=== PATIENT | male | born 1970 | race Caucasian/White ===

== ENCOUNTER → 2017-02-12 | Outpatient (CLI) | payer MEDICAID, OTHER ==
[2017-02-12 18:24] LABS: BASOPHILS # (AUTO) 0.1 10^3/uL (0.0-0.1); BASOPHILS % (AUTO) 0.6 %; EOSINOPHILS # (AUTO) 0.4 10^3/uL (0.0-0.7); EOSINOPHILS % (AUTO) 4.1 %; HGB - HEMOGLOBIN 16.3 g/dL (14.0-18.0); LYMPHOCYTES # (AUTO) 2.4 10^3/uL (1.5-3.5); MEAN CORPUSCULAR HEMOGLOBIN 30.7 pg (27.0-31.0); MEAN CORPUSCULAR HGB CONC 33.4 g/dL (32.0-36.0); MEAN PLATELET VOLUME 9.2 fL (7.4-11.4); MONOCYTES # (AUTO) 0.7 10^3/uL (0.0-1.0); MONOCYTES % (AUTO) 6.2 %; NEUTROPHILS # (AUTO) 7.2 10^3/uL (1.5-6.6); NEUTROPHILS % (AUTO) 67.1 %; NUCLEATED RED BLOOD CELLS AUTO 0.1 /100WBC; RED BLOOD COUNT 5.32 10^6/uL (4.70-6.10); RED CELL DISTRIBUTION WIDTH 13.2 % (12.0-15.0); UNCORRECTED WHITE BLOOD COUNT 10.8 x10^3/uL; WHITE BLOOD COUNT 10.8 x10^3/uL (4.8-10.8)
[2017-02-12 19:26] LABS: ALBUMIN/GLOBULIN RATIO 1.5 (1.0-2.2); BILIRUBIN,TOTAL 0.5 mg/dL (0.2-1.0); BUN - BLOOD UREA NITROGEN 17 mg/dL (6-20); CALCIUM 9.3 mg/dL (8.5-10.3); CARBON DIOXIDE - CO2 27 mmol/L (21-32); CHLORIDE 104 mmol/L (101-111); CHOL/HDL RATIO 4.7 (<5.0); CHOLESTEROL 177 mg/dL; CREATININE 0.8 mg/dL (0.6-1.2); GFR - MDRD 104 (>89); GLUCOSE 168 mg/dL (70-100); HDL CHOLESTEROL 38 mg/dL; LDL/HDL RATIO 2.5 (<3.6); POTASSIUM 4.6 mmol/L (3.5-5.0); SODIUM 138 mmol/L (135-145); TOTAL PROTEIN 7.2 g/dL (6.7-8.2); TRIGLYCERIDES 220 mg/dL; VLDL CHOLESTEROL 44 mg/dL
[2017-02-12 20:19] LABS: HEMOGLOBIN A1C 1.19 g/dL
== END ==
LOC: LAB.S 08:00
PROVIDERS: ATTEND Nurse Practitioner Family
DX: E11.9 Type 2 diabetes mellitus without complications (principal); E78.5 Hyperlipidemia, unspecified
CPT/HCPCS: 36415; 80053; 80061; 82043; 82570; 83036; 84443; 85025

== ENCOUNTER 2017-02-23 17:18 | Outpatient (CLI) | payer MEDICAID ==
--- NOTE | 2017-02-24 00:42 | XRAY Report ---
EXAM: RIGHT FOOT RADIOGRAPHY EXAM DATE: 02/23/2017 05:31 PM. CLINICAL HISTORY: PAIN AND EDEMA. Right foot pain and swelling for 3 days. Pain across metatarsals. COMPARISON: None. TECHNIQUE: 3 views. FINDINGS: Bones: Normal. No fractures or bone lesions. Joints: Minimal right first metatarsal phalangeal osteoarthritis with minimal osteophytes. No subluxa tion. Small plantar calcaneal bone spur. Soft Tissues: Normal. No soft tissue swelling. IMPRESSION: No acute findings. Minimal right first metatarsal phalangeal osteoarthritis. [facility] Referring Provider Line: [phone] SITE ID: [id number]
== END 2017-02-23 17:19 | disposition home or self-care (01) ==
LOC: DI 17:18
PROVIDERS: ATTEND Podiatrist
DX: M19.071 Primary osteoarthritis, right ankle and foot (principal)

== ENCOUNTER 2017-07-30 08:42 | Outpatient (CLI) | payer OTHER ==
[2017-07-30 11:13] LABS: HB2 TOTAL 17.5 g/dL; HEMOGLOBIN A1C 1.3 g/dL; HEMOGLOBIN A1C % 8.9 % (4.6-6.2)
== END 2017-07-30 08:43 | disposition home or self-care (01) ==
LOC: LAB.S 08:42
PROVIDERS: ATTEND Nurse Practitioner Family
DX: E11.9 Type 2 diabetes mellitus without complications (principal)
CPT/HCPCS: 36415; 83036

== ENCOUNTER 2017-11-01 14:15 | Outpatient (CLI) | payer OTHER ==
[2017-11-02 10:37] LABS: BILIRUBIN,URINE NEGATIVE (NEGATIVE); GLUCOSE, URINE (UA) NEGATIVE (NEGATIVE); KETONES,URINE (UA) NEGATIVE (NEGATIVE); LEUKOCYTE ESTERASE, URINE NEGATIVE (NEGATIVE); NITRITE,URINE NEGATIVE (NEGATIVE); OCCULT BLOOD,URINE NEGATIVE (NEGATIVE); PROTEIN,URINE NEGATIVE (NEGATIVE); UROBILINOGEN,URINE 0.2 (NORMAL) E.U./dL (NORMAL)
[2017-11-02 10:41] LABS: CLARITY,URINE CLOUDY (CLEAR)
[2017-11-02 11:05] LABS: AMORPHOUS SEDIMENT,UR Moderate /LPF; BACTERIA,URINE Many /HPF (None Seen); RBC,URINE None Seen /HPF (0-5); SQUAMOUS EPITHELIAL CELL,UR FEW Squamous (<= Few)
== END 2017-11-01 14:16 | disposition home or self-care (01) ==
LOC: LAB.R 14:15
PROVIDERS: ATTEND Nurse Practitioner Family
DX: R36.1 Hematospermia (principal)
CPT/HCPCS: 81001; 87086

== ENCOUNTER 2017-11-12 11:24 | Outpatient (CLI) | payer OTHER ==
[2017-11-12 19:25] LABS: HEMOGLOBIN A1C 0.99 g/dL; HEMOGLOBIN A1C % 7.5 % (4.6-6.2)
== END 2017-11-12 11:25 | disposition home or self-care (01) ==
LOC: LAB.S 11:24
PROVIDERS: ATTEND Nurse Practitioner Family
DX: E11.9 Type 2 diabetes mellitus without complications (principal); R36.1 Hematospermia
CPT/HCPCS: 36415; 83036; 84153

== ENCOUNTER 2018-03-08 09:17 | Outpatient (CLI) | payer OTHER ==
[2018-03-08 17:20] LABS: BASOPHILS # (AUTO) 0.1 10^3/uL (0.0-0.1); BASOPHILS % (AUTO) 0.8 %; EOSINOPHILS # (AUTO) 0.2 10^3/uL (0.0-0.7); EOSINOPHILS % (AUTO) 2.5 %; HGB - HEMOGLOBIN 15.6 g/dL (14.0-18.0); LYMPHOCYTES % (AUTO) 21.5 %; MEAN CORPUSCULAR HEMOGLOBIN 30.4 pg (27.0-31.0); MEAN CORPUSCULAR HGB CONC 34.3 g/dL (32.0-36.0); MEAN CORPUSCULAR VOLUME 88.4 fL (80.0-94.0); MEAN PLATELET VOLUME 8.9 fL (7.4-11.4); MONOCYTES # (AUTO) 0.6 10^3/uL (0.0-1.0); MONOCYTES % (AUTO) 6.8 %; NEUTROPHILS # (AUTO) 6.4 10^3/uL (1.5-6.6); NEUTROPHILS % (AUTO) 68.4 %; PLT - PLATELET COUNT 208 10^3/uL (130-450); RED BLOOD COUNT 5.12 10^6/uL (4.70-6.10); RED CELL DISTRIBUTION WIDTH 13.3 % (12.0-15.0); WHITE BLOOD COUNT 9.4 x10^3/uL (4.8-10.8)
[2018-03-08 18:01] LABS: HB2 TOTAL 16.6 g/dL; HEMOGLOBIN A1C 0.89 g/dL; HEMOGLOBIN A1C % 7.1 % (4.6-6.2)
[2018-03-08 18:15] LABS: ALBUMIN 4.5 g/dL (3.2-5.5); ALBUMIN/GLOBULIN RATIO 1.7 (1.0-2.2); ALKALINE PHOSPHATASE 42 IU/L (42-121); ALT ALANINE AMINOTRANSFERASE 29 IU/L (10-60); AST ASPARTATE AMINOTRANSFERASE 20 IU/L (10-42); BILIRUBIN,TOTAL 1.1 mg/dL (0.2-1.0); BUN - BLOOD UREA NITROGEN 17 mg/dL (6-20); CALCIUM 9.2 mg/dL (8.5-10.3); CARBON DIOXIDE - CO2 27 mmol/L (21-32); CHLORIDE 101 mmol/L (101-111); CHOL/HDL RATIO 3.3 (<5.0); CHOLESTEROL 149 mg/dL; CREATININE 0.9 mg/dL (0.6-1.2); GFR - MDRD 90 (>89); GLUCOSE 153 mg/dL (70-100); HDL CHOLESTEROL 45 mg/dL; LDL CHOLESTEROL,CALCULATED 78 mg/dL; LDL/HDL RATIO 1.7 (<3.6); SODIUM 135 mmol/L (135-145); TOTAL PROTEIN 7.2 g/dL (6.7-8.2); VLDL CHOLESTEROL 26 mg/dL
== END 2018-03-08 09:18 | disposition home or self-care (01) ==
LOC: LAB.F 09:17
PROVIDERS: ATTEND Nurse Practitioner Family
DX: I10 Essential (primary) hypertension (principal); E78.5 Hyperlipidemia, unspecified; E11.9 Type 2 diabetes mellitus without complications
CPT/HCPCS: 36415; 80053; 80061; 82043; 83036; 83721; 84443; 85025

== ENCOUNTER 2018-06-21 07:50 | Outpatient (CLI) | payer OTHER ==
[2018-06-22 17:20] LABS: HEMOGLOBIN A1C 0.98 g/dL; HEMOGLOBIN A1C % 7.8 % (4.6-6.2)
== END 2018-06-21 07:51 | disposition home or self-care (01) ==
LOC: LAB.F 07:50
PROVIDERS: ATTEND Nurse Practitioner Family
DX: E11.9 Type 2 diabetes mellitus without complications (principal)
CPT/HCPCS: 36415; 83036

== ENCOUNTER 2021-04-19 08:12 | Outpatient (CLI) | payer MEDICAID, OTHER ==
--- NOTE | 2021-04-19 09:47 | XRAY Report ---
PROCEDURE: Ankle 3 View LT INDICATIONS: LEFT ANKLE PAIN TECHNIQUE: 3 views of the ankle were acquired. COMPARISON: None. FINDINGS: Bones: No acute fractures or dislocations. Ankle mortise is normally aligned. No suspicious bony l esions. Small plantar calcaneal spur. Soft tissues: No suspicious soft tissue calcification. IMPRESSION: No acute osseous abnormality. If there is clinical concern or persistent symptoms, additional imaging such as repeat radiographs or advanced imaging (e.g. CT, MRI) may be helpful for further evaluation. Reviewed by: Adan Gracia MD on 04/19/2021 9:46 AM PDT Approved by: Adan Gracia MD on 04/19/2021 9:46 AM PDT Station ID: [id number]
--- NOTE | 2021-04-19 11:57 | XRAY Report ---
PROCEDURE: Knee 4 View LT INDICATIONS: LEFT KNEE PAIN TECHNIQUE: 4 views of the left knee(s) were acquired. COMPARISON: None. FINDINGS: Bones: No fractures or dislocations. No suspicious bony lesions. Deformity of the proximal shaft o f the fibula is consistent with healed remote fracture. Soft tissues: No joint effusion. No suspicious soft tissue calcifications. IMPRESSION: No evidence acute bony abnormality of the left knee. If clinical suspicion and/or symptoms persist, further assessment with repeat plain films or advanced imaging (e.g., CT, MRI, or bone scan) may be helpful for further assessment. Reviewed by: Chip Medina MD on 04/19/2021 11:56 AM PDT Approved by: Chip Medina MD on 04/19/2021 11:56 AM PDT Station ID: [id number]
== END 2021-04-19 08:13 | disposition home or self-care (01) ==
LOC: DI.N 08:12
PROVIDERS: ATTEND Physician Assistant
DX: M25.572 Pain in left ankle and joints of left foot (principal); M25.562 Pain in left knee

== ENCOUNTER 2021-10-27 07:13 | Outpatient (CLI) | payer OTHER, MEDICAID ==
[2021-10-27 14:32] LABS: BASOPHILS % (AUTO) 0.3 %; EOSINOPHILS # (AUTO) 0.2 10^3/uL (0.0-0.7); EOSINOPHILS % (AUTO) 2.1 %; HCT - HEMATOCRIT 49.5 % (42.0-52.0); HGB - HEMOGLOBIN 16.6 g/dL (14.0-18.0); LYMPHOCYTES # (AUTO) 1.5 10^3/uL (1.5-3.5); LYMPHOCYTES % (AUTO) 18.8 %; MEAN CORPUSCULAR HEMOGLOBIN 29.9 pg (27.0-31.0); MEAN CORPUSCULAR HGB CONC 33.5 g/dL (32.0-36.0); MEAN CORPUSCULAR VOLUME 89.2 fL (80.0-94.0); MEAN PLATELET VOLUME 10.6 fL (7.4-11.4); MONOCYTES # (AUTO) 0.6 10^3/uL (0.0-1.0); MONOCYTES % (AUTO) 7.2 %; NEUTROPHILS # (AUTO) 5.5 10^3/uL (1.5-6.6); NEUTROPHILS % (AUTO) 71.3 %; PLT - PLATELET COUNT 220 10^3/uL (130-450); RED BLOOD COUNT 5.55 10^6/uL (4.70-6.10); RED CELL DISTRIBUTION WIDTH 12.5 % (12.0-15.0); WHITE BLOOD COUNT 7.8 x10^3/uL (4.8-10.8)
[2021-10-27 14:47] LABS: ALBUMIN 4.4 g/dL (3.2-5.5); ALBUMIN/GLOBULIN RATIO 1.5 (1.0-2.2); ALKALINE PHOSPHATASE 54 IU/L (42-121); ALT ALANINE AMINOTRANSFERASE 30 IU/L (10-60); AST ASPARTATE AMINOTRANSFERASE 23 IU/L (10-42); BILIRUBIN,TOTAL 0.8 mg/dL (0.2-1.0); BUN - BLOOD UREA NITROGEN 27 mg/dL (6-20); CALCIUM 9.2 mg/dL (8.5-10.3); CARBON DIOXIDE - CO2 25 mmol/L (21-32); CHLORIDE 99 mmol/L (101-111); CHOL/HDL RATIO 2.7 (<5.0); CHOLESTEROL 139 mg/dL; CREATININE 0.8 mg/dL (0.6-1.2); GFR - MDRD 102 (>89); GLUCOSE 170 mg/dL (70-100); HDL CHOLESTEROL 52 mg/dL; LDL CHOLESTEROL,CALCULATED 73 mg/dL; LDL/HDL RATIO 1.4 (<3.6); POTASSIUM 4.4 mmol/L (3.5-5.0); SODIUM 134 mmol/L (135-145); TOTAL PROTEIN 7.3 g/dL (6.7-8.2); TRIGLYCERIDES 69 mg/dL; VLDL CHOLESTEROL 14 mg/dL
== END 2021-10-27 07:14 | disposition home or self-care (01) ==
LOC: LAB.S 07:13
PROVIDERS: ATTEND Internal Medicine
DX: I10 Essential (primary) hypertension (principal); E11.9 Type 2 diabetes mellitus without complications; I25.10 Atherosclerotic heart disease of native coronary artery without angina pectoris; Z79.899 Other long term (current) drug therapy; M25.562 Pain in left knee; J44.9 Chronic obstructive pulmonary disease, unspecified
CPT/HCPCS: 36415; 80053; 80061; 81599; 83036; 83721; 84153; 84443; 85025

== ENCOUNTER 2022-05-04 09:38 | Day surgery (SDC) | payer OTHER, MEDICAID ==
[~2022-05-04 09:38] MED LIST: CEFAZOLIN 2G/50ML 0.9% NS 2 GM/50 ML BAG IV ONE
[2022-05-04] MEDS ORDERED: LACTATED RINGERS 1,000 ML IV ONE ×2 (09:42→14:15)
[2022-05-04] MEDS ORDERED: BUPIVACAINE 0.25% PF 10 ML VIAL ONE (10:25)
--- NOTE | 2022-05-04 11:12 | ANESTHESIA ---
Pre-Anesthesia VS, & Labs - Diagnosis bilateral inguinal hernias - Procedure laproscopic bilateral inguinal hernia repairs Vital Signs: Temp Pulse Resp BP Pulse Ox O2 Flow Rate 36.3 C L 75 16 149/91 H 98 05/04/22 09:46 05/04/22 09:46 05/04/22 09:46 05/04/22 09:46 05/04/22 09:46 Height: 5 ft 10 in Weight (kg): 106 kg Body Mass Index: 33.5 BMI Classification: Obese - NPO >8 hours - Lab Results Current Lab Results: Laboratory Tests 05/04/22 10:16: POC Whole Bld Glucose 151 H Home Medications and Allergies Home Medications: Ambulatory Orders Aspirin [Aspirin EC] 81 mg PO DAILY 04/24/22 Doxazosin [Cardura] 4 mg PO DAILY 04/24/22 Ezetimibe [Zetia] 10 mg PO ONCE 04/24/22 Fluticasone Propionate [Flovent Diskus] 1 puffs IH BID 04/24/22 Green Tea [place] Extract [Green Tea Extract] 3 tab PO DAILY 04/24/22 Ipratropium [Atrovent] 1 puffs INH BID 04/24/22 Meloxicam, Submicronized [Meloxicam] 15 mg PO DAILY 04/24/22 Salmeterol Xinafoate [Serevent Diskus] 1 puffs INH BID 04/24/22 Turmeric Root/Olivia Root Ext [Turmeric Curcumin-Olivia Gummy] 5,850 mg PO DAILY 04/24/22 Ubidecarenone/Vit E Acet [Co Q-10 100 mg Softgel] 300 mg PO DAILY 04/24/22 Albuterol Sulfate [Ventolin Hfa] 1 - 2 puffs IH Q6HR PRN 09/06/15 Atorvastatin [Lipitor] 40 mg PO DAILY 09/06/15 lisinopriL [Lisinopril] 10 mg PO DAILY 09/06/15 metFORMIN [Glucophage] 1,000 mg PO BID 09/06/15 Metoprolol Tartrate 25 mg PO BID 02/05/16 Aspirin [Aspirin EC] 81 mg PO DAILY 04/24/22 Doxazosin [Cardura] 4 mg PO DAILY 04/24/22 Ezetimibe [Zetia] 10 mg PO ONCE 04/24/22 Fluticasone Propionate [Flovent Diskus] 1 puffs IH BID 04/24/22 Green Tea [place] Extract [Green Tea Extract] 3 tab PO DAILY 04/24/22 Ipratropium [Atrovent] 1 puffs INH BID 04/24/22 Meloxicam, Submicronized [Meloxicam] 15 mg PO DAILY 04/24/22 Salmeterol Xinafoate [Serevent Diskus] 1 puffs INH BID 04/24/22 Turmeric Root/Olivia Root Ext [Turmeric Curcumin-Olivia Gummy] 5,850 mg PO DAILY 04/24/22 Ubidecarenone/Vit E Acet [Co Q-10 100 mg Softgel] 300 mg PO DAILY 04/24/22 Allergies/Adverse Reactions: Allergies Allergy/AdvReac Type Severity Reaction Status Date / Time IV dye AdvReac Respiratory Uncoded 02/05/16 18:04 Anes History & Medical History - Anesthetic History Anesthesia Complications: reports: No previous complications - Medical History Cardiovascular: reports: Hypertension, High cholesterol, Coronary artery disease Pulmonary: reports: Asthma, COPD, Pneumonia, Sleep apnea Gastrointestinal: reports: None Urinary: reports: None Musculoskeletal: reports: Osteoarthritis, Chronic back pain Endocrine/Autoimmune: reports: Type 2 diabetes Blood Disorders: reports: None Skin: reports: None Smoking Status: Never smoker History of Cancer?: No - Surgical History General: reports: Cholecystectomy Cardiothoracic: reports: Coronary stent Exam General: Alert, Oriented x3 Dental: WNL Mouth Opening: Greater than 4 Fingerbreadths Neck Mobility: Normal Mallampati classification: II Thyromental Distance: greater than 6 cm Respiratory: Lungs clear Cardiovascular: Regular rate, Normal S1, Normal S2 Plan Anesthesia Type: General Consent for Procedure(s) Verified and Reviewed: Yes Code Status: Attempt Resuscitation ASA classification: 3-Severe systemic disease Is this case an emergency?: No
[2022-05-04] MEDS ORDERED: NALOXONE 0.4 MG/ML VIAL IVP PRN (11:15)
[2022-05-04] MEDS ORDERED: fentaNYL 100 MCG/2 ML VIAL IVP PRN (11:15)
[2022-05-04] MEDS ORDERED: MORPHINE 2 MG/ML CARPUJECT IVP PRN (11:15)
[2022-05-04] MEDS ORDERED: ePHEDrine 50 MG/ML VIAL IVP PRN (11:15)
[2022-05-04] MEDS ORDERED: ATROPINE ABBOJECT 1 MG/10 ML SYRINGE IVP PRN (11:15)
[2022-05-04] MEDS ORDERED: ONDANSETRON 4 MG/2 ML VIAL IVP PRN (11:15)
[2022-05-04] MEDS ORDERED: HYDROmorphone 0.5 MG/0.5 ML SYRINGE IVP PRN (11:15)
[2022-05-04] MEDS ORDERED: METOCLOPRAMIDE 10 MG/2 ML VIAL IVP PRN (11:15)
[2022-05-04] MEDS ORDERED: PROPOFOL 200 MG/20 ML VIAL IVP ONE (11:23)
[2022-05-04] MEDS ORDERED: ROCURONIUM 50 MG/5 ML VIAL ONE (11:23)
[2022-05-04] MEDS ORDERED: ONDANSETRON 4 MG/2 ML VIAL ONE (11:23)
[2022-05-04] MEDS ORDERED: DEXAMETHASONE 4 MG/ML VIAL ONE (11:23)
--- NOTE | 2022-05-04 11:23 | HISTORY & PHYSICAL EXAMINATION ---
Chief Complaint - Chief Complaint Chief Complaint: hernia bulges History of Present Illness - History Obtained From Records Reviewed: yes History obtained from: pt Exam Limitations: none - History of Present Illness HPI Comment/Other: right greater than left inguinal hernia History - Past Medical History Cardiovascular: reports: Hypertension, High cholesterol, Coronary artery disease Respiratory: reports: Asthma, COPD, Pneumonia, Sleep apnea Endocrine/Autoimmune: reports: Type 2 diabetes GI: reports: None : reports: None HEENT: reports: Chronic vision loss Psych: reports: None Musculoskeletal: reports: Osteoarthritis, Chronic back pain Derm: reports: None MRSA Hx?: Yes - Past Surgical History General: reports: Cholecystectomy Cardiovascular: reports: Coronary stent - POLST Patient has POLST: No Meds/Allgy - Home Medications Home Medications: Ambulatory Orders Medication Instructions Recorded Confirmed Albuterol Sulfate [Ventolin Hfa] 1 - 2 puffs IH Q6HR PRN 09/06/15 05/04/22 Atorvastatin [Lipitor] 40 mg PO DAILY 09/06/15 05/04/22 lisinopriL [Lisinopril] 10 mg PO DAILY 09/06/15 05/04/22 metFORMIN [Glucophage] 1,000 mg PO BID 09/06/15 05/04/22 Metoprolol Tartrate 25 mg PO BID 02/05/16 05/04/22 Aspirin [Aspirin EC] 81 mg PO DAILY 04/24/22 05/04/22 Doxazosin [Cardura] 4 mg PO DAILY 04/24/22 05/04/22 Ezetimibe [Zetia] 10 mg PO ONCE 04/24/22 05/04/22 Fluticasone Propionate [Flovent 1 puffs IH BID 04/24/22 05/04/22 Diskus] Green Tea [place] Extract [Green Tea 3 tab PO DAILY 04/24/22 05/04/22 Extract] Ipratropium [Atrovent] 1 puffs INH BID 04/24/22 05/04/22 Meloxicam, Submicronized 15 mg PO DAILY 04/24/22 05/04/22 [Meloxicam] Salmeterol Xinafoate [Serevent 1 puffs INH BID 04/24/22 05/04/22 Diskus] Turmeric Root/Olivia Root Ext 5,850 mg PO DAILY 04/24/22 05/04/22 [Turmeric Curcumin-Olivia Gummy] Ubidecarenone/Vit E Acet [Co Q-10 300 mg PO DAILY 04/24/22 05/04/22 100 mg Softgel] - Allergies Allergies/Adverse Reactions: Allergies Allergy/AdvReac Type Severity Reaction Status Date / Time IV dye AdvReac Respiratory Uncoded 02/05/16 18:04 Review of Systems - Other Findings Other Findings: 10 pt ros as above otherwise unremarkable no recent heart problems Exam - Vital Signs Reviewed Vital Signs: Yes Vital Signs: Vital Signs x48h Temp Pulse Resp BP Pulse Ox 05/04/22 09:46 36.3 C L 75 16 149/91 H 98 - Physical Exam General Appearance: positive: No acute distress, Alert Eyes Bilateral: positive: PERRL, EOMI, No scleral icterus ENT: positive: No signs of dehydration Neck: positive: No JVD, Trachea midline Respiratory: positive: No respiratory distress, Breath sounds nml Cardiovascular: positive: Regular rate & rhythm Abdomen: positive: Other (bilateral inguinal hernias present) Neurologic/Psychiatric: positive: Oriented x3 Conclusion/Plan - Problem List (1) Inguinal hernia bilateral, non-recurrent Conclusion/Plan: plan laparoscopic repair. parq held and consent obtained
[2022-05-04] MEDS ORDERED: fentaNYL 100 MCG/2 ML VIAL ONE ×2 (11:24→13:55)
[2022-05-04] MEDS ORDERED: MIDAZOLAM 2 MG/2 ML VIAL ONE (11:25)
[2022-05-04] MEDS ORDERED: LACTATED RINGERS 1,000 ML IV SCH (12:00)
[2022-05-04] MEDS ORDERED: ePHEDrine 50 MG/ML VIAL IVP ONE (12:24)
[2022-05-04] MEDS ORDERED: ACETAMINOPHEN 1,000 MG/100 ML 1,000 MG/100 ML BAG IV ONE (12:36)
[2022-05-04] MEDS ORDERED: BUPIVACAINE 0.25% PF 10 ML VIAL SUBQ ONE ×3 (12:53)
[2022-05-04] MEDS ORDERED: SUGAMMADEX 200 MG/2 ML VIAL IVP ONE (13:49)
[2022-05-04] MEDS: HYDROmorphone 1 MG/ML CARPUJECT ONE ×2 (14:25→14:30)
[2022-05-04] MEDS ORDERED: HYDROcod/ACETAM 5/325 MG TABLET PO PRN (14:26)
[2022-05-04] MEDS ORDERED: HYDROcod/ACETAM 5/325 MG TABLET ONE (14:58)
[2022-05-04 15:46] VITALS: BP 117/71
--- NOTE | 2022-05-04 15:55 | ANESTHESIA POST OP EVALUATION ---
Anesthesia Post Eval - Post Anesthesia Eval Vitals: Last Vital Signs Temp 36.6 C 05/04/22 15:30 Pulse 74 05/04/22 15:30 Resp 16 05/04/22 15:30 BP 117/71 05/04/22 15:30 Pulse Ox 96 05/04/22 15:30 O2 Flow Rate CV Function Including HR & BP: Stable Pain Control: Satisfactory Nausea & Vomiting: Negative Mental Status: Baseline Respiratory Status: Airway Patent Hydration Status: Satisfactory Anesthesia Complications: None
--- NOTE | 2022-05-04 16:10 | OPERATIVE REPORT ---
Operative Report - General Procedure Date: 05/04/22 Planned Procedure: laparoscopic bilateral inguinal hernia repair Pre-Op Diagnosis: bilateral inguinal hernias Procedure Performed: laparoscopic bilateral inguinal hernia repair Post Op Diagnosis: bilateral indirect and direct inguinal hernia - Procedure Note Primary Surgeon: lillian stock Anesthesia Technique: General ET tube, Local Pathology: none Estimated Blood Loss (mL): 5 Drain/Tube Type: Other (none) Indications: symptomatic hernia Findings: as above large bard preform mesh bilateral Complications: none - Other Other Information/Narrative: The patient was prepped identified brought to the operating room and placed in supine position. Sequential compression devices were placed. General endotra cheal anesthesia was induced. [place] catheter was placed. He was prepped and draped in a sterile fashion and given preoperative antibiotics. Local anesthetic was given to the operative area. A 3 cm infraumbilical incision was made. A 2 and half centimeter incision was made on the fascia just right lateral of midline. The preperitoneal space was developed with digital blunt dissection. A Miles trocar was placed and secured with 3 interrupted 0 Vicryl sutures. The preperitoneal space was further developed using the scope. In midline two 5 mm trochars were placed. The right inguinal hernia was first approached. The preperitoneal space was further developed. The peritoneum was further brought down. There was indirect inguinal hernias as well as direct on both sides. The inferior epigastrics were kept along the abdominal wall. The patient had a direct inguinal hernia. The left side was then approached. Dissection proceeded in a similar fashion. A pocket was created on both sides to allow for large preformed mesh. The indirect inguinal hernias sacs were than tied with a pds endoloop. Bard large preformed mesh was placed bilaterally and secured at the pubic tubercle along Aaron's ligament and anteriorly under the rectus musculature. The mesh lay in good position. CO2 was evacuated and trochars removed under vision. Fascia at the periumbilical area was closed with a total of 4 interrupted 0 Vicryl sutures. Skin was closed with a running 4-0 Monocryl subcuticular suture. Dressings were applied. The [place] catheter was removed. The patient tolerated the procedure well was awakened and brought to recovery in good condition.
== END 2022-05-04 09:39 | disposition home or self-care (01) ==
LOC: SDS 09:38
PROVIDERS: ATTEND Surgery
DX: K40.20 Bilateral inguinal hernia, without obstruction or gangrene, not specified as recurrent (principal); G47.30 Sleep apnea, unspecified; J44.9 Chronic obstructive pulmonary disease, unspecified; E11.9 Type 2 diabetes mellitus without complications; I25.10 Atherosclerotic heart disease of native coronary artery without angina pectoris; E66.9 Obesity, unspecified; Z68.33 Body mass index [BMI] 33.0-33.9, adult
CPT/HCPCS: 49650; A9270; C1781; J0131; J0690; J1170; J7120

== ENCOUNTER 2022-09-14 06:58 | Outpatient (CLI) | payer OTHER, MEDICAID ==
[2022-09-14 14:39] LABS: BASOPHILS % (AUTO) 0.4 %; EOSINOPHILS # (AUTO) 0.3 10^3/uL (0.0-0.7); EOSINOPHILS % (AUTO) 4.1 %; HCT - HEMATOCRIT 48.2 % (42.0-52.0); HGB - HEMOGLOBIN 15.5 g/dL (14.0-18.0); LYMPHOCYTES # (AUTO) 1.4 10^3/uL (1.5-3.5); LYMPHOCYTES % (AUTO) 17.9 %; MEAN CORPUSCULAR HEMOGLOBIN 29.6 pg (27.0-31.0); MEAN CORPUSCULAR HGB CONC 32.2 g/dL (32.0-36.0); MEAN PLATELET VOLUME 10.4 fL (7.4-11.4); MONOCYTES # (AUTO) 0.6 10^3/uL (0.0-1.0); MONOCYTES % (AUTO) 7.8 %; NEUTROPHILS # (AUTO) 5.2 10^3/uL (1.5-6.6); NEUTROPHILS % (AUTO) 69.5 %; PLT - PLATELET COUNT 240 10^3/uL (130-450); RED BLOOD COUNT 5.24 10^6/uL (4.70-6.10); RED CELL DISTRIBUTION WIDTH 12.6 % (12.0-15.0); WHITE BLOOD COUNT 7.5 x10^3/uL (4.8-10.8)
[2022-09-14 14:58] LABS: ALBUMIN 4.3 g/dL (3.2-5.5); ALBUMIN/GLOBULIN RATIO 1.7 (1.0-2.2); ALKALINE PHOSPHATASE 51 IU/L (42-121); ALT ALANINE AMINOTRANSFERASE 34 IU/L (10-60); AST ASPARTATE AMINOTRANSFERASE 21 IU/L (10-42); BILIRUBIN,TOTAL 1.2 mg/dL (0.2-1.0); BUN - BLOOD UREA NITROGEN 15 mg/dL (6-20); CALCIUM 9.3 mg/dL (8.5-10.3); CARBON DIOXIDE - CO2 29 mmol/L (21-32); CHLORIDE 100 mmol/L (101-111); CHOL/HDL RATIO 2.6 (<5.0); CHOLESTEROL 109 mg/dL; CREATININE 0.8 mg/dL (0.6-1.2); GFR - MDRD 101 (>89); GLUCOSE 223 mg/dL (70-100); HDL CHOLESTEROL 42 mg/dL; LDL CHOLESTEROL,CALCULATED 54 mg/dL; LDL/HDL RATIO 1.3 (<3.6); POTASSIUM 5.1 mmol/L (3.5-5.0); SODIUM 135 mmol/L (135-145); TOTAL PROTEIN 6.8 g/dL (6.7-8.2); TRIGLYCERIDES 63 mg/dL; VLDL CHOLESTEROL 13 mg/dL
== END 2022-09-14 06:59 | disposition home or self-care (01) ==
LOC: LAB.S 06:58
PROVIDERS: ATTEND Internal Medicine
DX: I10 Essential (primary) hypertension (principal); E11.9 Type 2 diabetes mellitus without complications; I25.10 Atherosclerotic heart disease of native coronary artery without angina pectoris; J44.9 Chronic obstructive pulmonary disease, unspecified; Z79.899 Other long term (current) drug therapy; Z12.5 Encounter for screening for malignant neoplasm of prostate
CPT/HCPCS: 36415; 80053; 80061; 83721; 84153; 84443; 85025